=== PATIENT | male | born 1945 | race Two or more races ===

== ENCOUNTER 2017-11-17 09:48 | Outpatient (CLI) | payer OTHER | END 2017-11-17 11:15 | disposition home or self-care (01) | LOC: RAD 09:48 | DX: Z01.818 Encounter for other preprocedural examination (principal) ==

== ENCOUNTER 2021-09-02 08:45 | Inpatient (IN) | payer OTHER ==
[~2021-09-02] VITALS: Ht 170.2 cm; Wt 70.3 kg
[2021-09-02] MEDS ORDERED: TAMS0.4C PO (10:56)
[2021-09-02] MEDS ORDERED: PROSCAR5 MG PO (10:57)
[2021-09-02] MEDS ORDERED: LEVO-T25 MCG PO (10:57)
[2021-09-02] MEDS ORDERED: ALLOPURINOL300 MG PO (10:57)
[2021-09-02] MEDS ORDERED: TIMOPTIC10 ML OP (10:58)
[2021-09-06] MEDS ORDERED: CLOPIDOGREL BIS75 MG (08:03)
== END 2021-09-09 22:52 | disposition home or self-care (01) | DRG 330 ==
LOC: O/R 09-06 06:14 → SURG 09-06 08:45
PROVIDERS: ADMIT Surgery; ATTEND Surgery
PROC: 0DBP4ZZ Excision of Rectum, Percutaneous Endoscopic Approach (ICD-10-PCS; 2021-09-06)
PROC: 0DTN4ZZ Resection of Sigmoid Colon, Percutaneous Endoscopic Approach (ICD-10-PCS; principal; 2021-09-06 14:45)
DX: K57.20 Diverticulitis of large intestine with perforation and abscess without bleeding (principal); N32.1 Vesicointestinal fistula; K63.5 Polyp of colon

== ENCOUNTER 2022-06-02 12:50 | Emergency (ER) | payer OTHER ==
[~2022-06-02] VITALS: Ht 170.2 cm; Wt 74.8 kg
[~2022-06-02 12:50] MED LIST: ALLOPURINOL300 MG PO; CLOPIDOGREL BIS75 MG; LEVO-T25 MCG PO; PROSCAR5 MG PO; TAMS0.4C PO; TIMOPTIC10 ML OP
[2022-06-02] MEDS ORDERED: TAMS0.4C (13:37)
== END 2022-06-02 17:56 | disposition home or self-care (01) ==
LOC: ER 12:50
DX: K59.00 Constipation, unspecified (principal); K57.90 Diverticulosis of intestine, part unspecified, without perforation or abscess without bleeding; R30.0 Dysuria

== ENCOUNTER 2023-08-15 06:24 | Day surgery (SDC) | payer OTHER ==
[2023-08-08 09:44] LABS: HEMATOCRIT 40.1 % (39.0-48.0); HEMOGLOBIN 13.7 g/dL (13-16.00); MEAN CELL VOLUME 100.8 fL (80.0-100.00); MEAN CORPUSCULAR HEMOGLOBIN 34.5 pg (27.00-32.0); MEAN CORPUSCULAR HGB CONC 34.2 g/dl (32.0-36.0); PLATELET COUNT 217 K/uL (150-450); RED BLOOD COUNT 3.98 M/uL (4.00-6.00); RED CELL DISTRIBUTION WIDTH 13.1 % (11.5-14.5)
[2023-08-08 09:53] LABS: URINE APPEARANCE Clear; URINE BILIRRUBIN Negative (NEGATIVE); URINE BLOOD Negative; URINE COLOR Yellow; URINE GLUCOSE Negative (NEGATIVE); URINE LEUKOCYTE Negative; URINE NITRATE Negative; URINE PROTEIN Negative (NEGATIVE); URINE UROBILINOGEN 0.2 E.U./dl
[2023-08-08 09:57] LABS: URINE BACTERIA 16.3 uL (0.0-1933); URINE EPITHELIAL CELLS 4.4 uL (0.0-38.8); URINE RBC 3.5 uL (0.0-20.8); URINE WBC 4.4 uL (0.0-23.2)
[2023-08-08 10:01] LABS: INR 0.99; PARTIAL THROMBOPLASTIN TIME 30.5 SECONDS (22.0-34.0); PROTHROMBIN TIME 10.4 SECONDS (9.0-11.5)
[2023-08-08 10:03] LABS: CALCIUM 8.9 mg/dL (8.5-10.1); CREATININE SERUM 0.81 mg/dL (0.70-1.30); GFR 92.16; POTASSIUM 3.87 mEq/L (3.5-5.1)
[~2023-08-15 06:24] MED LIST changes: +TAMS0.4C
[2023-08-15] MEDS ORDERED: CEFTRIAXONE SODIUM 2,000 MG VIAL IV ONE (11:15)
[2023-08-15] MEDS ORDERED: METRONIDAZOLE/SODIUM CHLORIDE 500 MG/100 ML PIGGYBACK IV ONE (11:15)
[2023-08-15] MEDS ORDERED: BUPIVACAINE HCL 30 ML VIAL IJ ONE (11:15)
[2023-08-15] MEDS ORDERED: ENOXAPARIN SODIUM 40 MG/0.4 ML SYRINGE SUBCUTANEO ONE (11:15)
[2023-08-15] MEDS ORDERED: PERCOCET 5-3251 EACH PO (15:30)
[2023-08-15] MEDS ORDERED: POLY119PG PO (15:30)
[2023-08-15] MEDS ORDERED: NEURONTIN300 MG PO (15:30)
== END 2023-08-15 17:35 | disposition home or self-care (01) ==
LOC: CIR.AMB 06:24
PROVIDERS: ATTEND Surgery
DX: K40.20 Bilateral inguinal hernia, without obstruction or gangrene, not specified as recurrent (principal); M19.90 Unspecified osteoarthritis, unspecified site
CPT/HCPCS: 49650; C1781